=== PATIENT | male | born 1985 | race Caucasian/White ===

== ENCOUNTER 2018-04-17 04:50 | Day surgery (SDC) | payer OTHER ==
[~2018-04-17] VITALS: Ht 182.9 cm; Wt 94.3 kg
--- NOTE | ~2018-04-17 | OP ---
PATIENT NAME: NURY ARNETT MEDICAL RECORD: [id number] :81 LOCATION:[facility] ADMISSION DATE: SURGEON: HARPREET JOSEPH, JOSE BERNABE DATE OF OPERATION: 04/17/2018 PREOPERATIVE DIAGNOSES: 1. ACL tear of the right knee. 2. Medial meniscus tear of the right. 3. Lateral meniscus tear of the right knee. POSTOPERATIVE DIAGNOSES: 1. ACL tear of the right knee. 2. Medial meniscus tear of the right. 3. Lateral meniscus tear of the right knee. PROCEDURES: 1. Arthroscopic anterior cruciate ligament reconstruction - autograft. 2. Arthroscopic partial medial meniscectomy. 3. Arthroscopic partial lateral meniscectomy. SURGEON: Jose Mullins MD ANESTHESIA: General. INTRAOPERATIVE COMPLICATIONS: None. 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 The meniscal tear on the medial side was complex. Meniscal tear on the lateral side was also complex with a portion of the meniscus into the intercondylar notch was debrided. The patient did have a type A notch. Formal notchplasty was performed. Autograft used was a middle third of patella, tendon size 10 autograft. OPERATIVE SUMMARY IN DETAIL: After obtaining the appropriate preoperative orthopedic surgery consent as well as anesthetic consultation, evaluation and clearance, the patient was brought to the operating room and placed on operating table in supine position. After general laryngeal mask airway was administered, tourniquet was placed about the proximal aspect of right lower extremity. Right lower extremity was then prepped and draped in routine sterile fashion. Leg was elevated and exsanguinated. Tourniquet was inflated to 350 mmHg. Routine inferolateral portal was established followed by superior medial portal and inferomedial portal. Diagnostic arthroscopy did reveal the above findings. The ACL was essentially completely gone. Any residual stump was taken down with 5.0 resector as was the femoral portion. Formal notchplasty was performed as this patient did have a very tight type A notch. Areas on the medial and lateral femoral condyle of chondromalacia were seen, nothing worse than grade II, likely from chronic instability. The medial meniscus tear was first approached. A small resector was utilized to debride the meniscus along with meniscotomes back to all stable meniscal elements. The leg was then placed in a [id number] position and substantial debridement of the lateral meniscus was required. The lateral meniscus being stabilized and the stump being taken out, the tibial tunnel was created with an 11-mm baton reamer over Beath pin. Over the top guide appropriate was then utilized. A spade tip was then placed through the femur out the lateral cortex and through the skin. Low profile 11-mm reamer was OPERATIVE REPORT [id number] NURY ARNETT then utilized to create a 25-mm femoral canal and spade tip pin was then utilized to pull guide strength through it. The graft having been prepared with an [employer] TightRope system was deployed. The femoral socket was nice and snug. The TightRope mechanism was then deployed with good compression on the lateral femoral cortex. The knee was ranged several times for seating of the graft. At this point, the graft was then affixed distally using a transcortical tibial post from [employer]. The knee was then taken through range of motion. Omar's was negative as was the anterior drawer. Please note that prior to taking the graft, incision was made from the tip of the patella to the tibial tuberosity. Paratenon was gently incised and the middle third of the tendon was harvested from the tibial tubercle and the distal pole of the patella. This was handed off and made ready for the above procedure. Paratenon was closed with #2 Vicryl, followed by skin kati. That was all done prior to placing the graft and as described above. Final skin closure was done with a 4-0 Prolene as well as skin kati. The knee was again ranged. Sterile dressings were applied. Tourniquet was deflated. The patient awakened and taken to recovery room in stable condition. All final needle and sponge counts were correct. TRANSINT:[id number] Voice Confirmation ID: [id number] DOCUMENT ID: [id number] JOSE MULLINS MD at 1331 CC: [id number] DICTATION DATE: 04/17/18932 APRON OPERATOR: 04/17/18 1207 DEP [facility] [place] 04/17/18 [place] [id number] [place] [id number]
[2018-04-17 05:54] LABS: HEMATOCRIT 43.2 % (42.0-54.0); HEMOGLOBIN 14.6 g/dL (13.5-17.5); MCH 28.2 pg (26.0-34.0); MCHC 33.8 g/dL (31.0-37.0); MCV 83.6 fL (80.0-100.0); MEAN PLATELET VOLUME 9.8 fL (7.4-10.4); RBC 5.17 10x6/uL (4.20-6.10); RDW 13.9 % (11.5-14.5); WBC 5.4 10x3/uL (4.8-10.8)
[2018-04-17] MEDS ORDERED: TENORMIN50 MG PO (06:26)
[2018-04-17] MEDS ORDERED: MOBIC7.5 MG PO (06:27)
[2018-04-17 06:34] VITALS: BP 115/79; Ht 182.9 cm; Wt 94.3 kg
[2018-04-17] MEDS ORDERED: HYDROCODONE-APA1 TAB PO (09:29)
== END 2018-04-17 11:50 | disposition home or self-care (01) ==
LOC: D.OPS 04:50
PROVIDERS: Anesthesiology
DX: S83.511A Sprain of anterior cruciate ligament of right knee, initial encounter (principal); S83.241A Other tear of medial meniscus, current injury, right knee, initial encounter; S83.281A Other tear of lateral meniscus, current injury, right knee, initial encounter; Z01.812 Encounter for preprocedural laboratory examination